=== PATIENT | female | born 1965 | race Two or more races ===

== ENCOUNTER 2018-04-16 23:07 | Emergency (ER) | payer OTHER ==
[~2018-04-16] VITALS: Ht 160 cm; Wt 131.5 kg
[2018-04-17] MEDS ORDERED: HYZAAR 100-12.1 EACH PO (00:16)
[2018-04-17] MEDS ORDERED: WELLBUTRIN SR100 MG PO (00:16)
[2018-04-17] MEDS ORDERED: FORTAMET500 MG PO (00:16)
[2018-04-17] MEDS ORDERED: CLONAZEPAM1 M1 (00:17)
[2018-04-17] MEDS ORDERED: GABAPENTIN100 MG PO (00:17)
[2018-04-17] MEDS ORDERED: ZOLOFT25 MG PO (00:17)
== END 2018-04-17 | disposition home or self-care (01) ==
LOC: ER 23:07
DX: M51.17 Intervertebral disc disorders with radiculopathy, lumbosacral region (principal)

== ENCOUNTER 2018-05-30 17:07 | Emergency (ER) | payer OTHER ==
[~2018-05-30] VITALS: Ht 157.5 cm; Wt 132.0 kg
[~2018-05-30 17:07] MED LIST: CLONAZEPAM1 M1; FORTAMET500 MG PO; GABAPENTIN100 MG PO; HYZAAR 100-12.1 EACH PO; WELLBUTRIN SR100 MG PO; ZOLOFT25 MG PO
[2018-05-30] MEDS ORDERED: ZOLOFT100 MG (17:47)
[2018-05-30] MEDS ORDERED: TRAMADOL HCL50 MG (17:48)
[2018-05-31] MEDS ORDERED: INTESTINEX680 M1 PO (08:27)
[2018-05-31] MEDS ORDERED: PHENERGAN25 MG PO (08:27)
[2018-05-31] MEDS ORDERED: TRAMADOL HCL50 MG PO (08:27)
[2018-05-31] MEDS ORDERED: PEPCID AC20 MG PO (08:27)
[2018-05-31] MEDS ORDERED: LEVSIN/SL0.125 MG PO (08:27)
[2018-05-31] MEDS ORDERED: MOXIFLOXACIN H400 MG PO (08:27)
== END 2018-05-31 08:20 | disposition home or self-care (01) ==
LOC: ER 17:07
DX: K43.9 Ventral hernia without obstruction or gangrene (principal); K56.690 Other partial intestinal obstruction; R10.31 Right lower quadrant pain; R10.32 Left lower quadrant pain

== ENCOUNTER 2018-07-21 09:49 | Inpatient (IN) | payer OTHER ==
[~2018-07-21] VITALS: Ht 160 cm; Wt 108.9 kg
[~2018-07-21 09:49] MED LIST changes: +INTESTINEX680 M1 PO; +LEVSIN/SL0.125 MG PO; +MOXIFLOXACIN H400 MG PO; +PEPCID AC20 MG PO; +PHENERGAN25 MG PO; +TRAMADOL HCL50 MG; +TRAMADOL HCL50 MG PO; +ZOLOFT100 MG
== END 2018-07-27 18:10 | disposition designated cancer center or children's hospital (05) | DRG 862 ==
LOC: SEC-K 09:49 → MEDJ 09:49
PROC: 30233N1 Transfusion of Nonautologous Red Blood Cells into Peripheral Vein, Percutaneous Approach (ICD-10-PCS; principal; 2018-07-21)
PROC: 8E0ZXY6 Isolation (ICD-10-PCS; 2018-07-21)
PROC: 05HN33Z Insertion of Infusion Device into Left Internal Jugular Vein, Percutaneous Approach (ICD-10-PCS; 2018-07-23)
DX: T81.4XXA Infection following a procedure, initial encounter (principal); A41.9 Sepsis, unspecified organism; L03.311 Cellulitis of abdominal wall; B37.49 Other urogenital candidiasis; J98.11 Atelectasis; Y83.8 Other surgical procedures as the cause of abnormal reaction of the patient, or of later complication, without mention of misadventure at the time of the procedure; Y92.098 Other place in other non-institutional residence as the place of occurrence of the external cause; E66.01 Morbid (severe) obesity due to excess calories; I10 Essential (primary) hypertension; D64.89 Other specified anemias; E11.65 Type 2 diabetes mellitus with hyperglycemia; M51.17 Intervertebral disc disorders with radiculopathy, lumbosacral region; B96.4 Proteus (mirabilis) (morganii) as the cause of diseases classified elsewhere; B95.2 Enterococcus as the cause of diseases classified elsewhere; B96.1 Klebsiella pneumoniae [K. pneumoniae] as the cause of diseases classified elsewhere; B96.5 Pseudomonas (aeruginosa) (mallei) (pseudomallei) as the cause of diseases classified elsewhere; B96.89 Other specified bacterial agents as the cause of diseases classified elsewhere

== ENCOUNTER 2020-03-31 13:36 | Emergency (ER) | payer OTHER ==
[~2020-03-31] VITALS: Ht 162.6 cm; Wt 136.1 kg
[2020-03-31] MEDS ORDERED: HYZAAR 100-251 EACH (13:56)
[2020-03-31] MEDS ORDERED: TOPROL XL50 M1 (13:57)
[2020-03-31] MEDS ORDERED: ASPIR 8181 MG (13:58)
[2020-03-31] MEDS ORDERED: SULINDAC200 MG (13:58)
[2020-03-31] MEDS ORDERED: AMBIEN10 MG (13:58)
== END 2020-03-31 16:13 | disposition home or self-care (01) ==
LOC: ER 13:36
DX: M79.651 Pain in right thigh (principal); R07.89 Other chest pain

== ENCOUNTER 2022-02-26 07:28 | Outpatient (CLI) | payer OTHER ==
[~2022-02-26 07:28] MED LIST changes: +AMBIEN10 MG; +ASPIR 8181 MG; +HYZAAR 100-251 EACH; +SULINDAC200 MG; +TOPROL XL50 M1
== END 2022-02-26 07:40 | disposition home or self-care (01) ==
LOC: TOM 07:28
PROVIDERS: ATTEND Internal Medicine Gastroenterology
DX: K63.5 Polyp of colon (principal); K57.30 Diverticulosis of large intestine without perforation or abscess without bleeding; Z80.0 Family history of malignant neoplasm of digestive organs; R19.5 Other fecal abnormalities; K62.5 Hemorrhage of anus and rectum

== ENCOUNTER 2023-08-13 10:33 | Emergency (ER) | payer OTHER ==
[~2023-08-13] VITALS: Ht 157.5 cm; Wt 136.1 kg
[2023-08-13 11:43] LABS: HEMATOCRIT 34.8 % (36.0-45.00); HEMOGLOBIN 11.8 g/dL (12.0-15.00); MEAN CORPUSCULAR HEMOGLOBIN 29.9 pg (27.00-32.0); PLATELET COUNT 243 K/uL (150-450); RED BLOOD COUNT 3.95 M/uL (4.00-6.00); RED CELL DISTRIBUTION WIDTH 13.6 % (11.5-14.5)
[2023-08-13 12:03] LABS: CALCIUM 9.9 mg/dL (8.5-10.1); CREATININE SERUM 1.28 mg/dL (0.55-1.02); GFR 42.83; POTASSIUM 3.17 mEq/L (3.5-5.1)
[2023-08-13 12:50] LABS: URINE APPEARANCE Cloudy; URINE BILIRRUBIN Negative (NEGATIVE); URINE BLOOD Small; URINE COLOR Yellow; URINE GLUCOSE Negative (NEGATIVE); URINE LEUKOCYTE Moderate; URINE NITRATE Negative; URINE PROTEIN Negative (NEGATIVE); URINE UROBILINOGEN 0.2 E.U./dl
[2023-08-13 12:52] LABS: URINE BACTERIA 6370.1 uL (0.0-1933); URINE EPITHELIAL CELLS 27.5 uL (0.0-38.8); URINE WBC 638.2 uL (0.0-23.2)
== END 2023-08-13 14:07 | disposition home or self-care (01) ==
LOC: ER
PROVIDERS: Emergency Medicine
DX: N39.0 Urinary tract infection, site not specified (principal); I10 Essential (primary) hypertension; E11.9 Type 2 diabetes mellitus without complications; Z79.84 Long term (current) use of oral hypoglycemic drugs
CPT/HCPCS: 36415; 72131; 96372; 99284; J0696; J1885

== ENCOUNTER 2023-08-20 04:38 | Emergency (ER) | payer OTHER ==
[~2023-08-20] VITALS: Ht 157.5 cm; Wt 136.1 kg
[2023-08-20 06:27] LABS: HEMATOCRIT 36.3 % (36.0-45.00); HEMOGLOBIN 12.1 g/dL (12.0-15.00); MEAN CORPUSCULAR HEMOGLOBIN 29.7 pg (27.00-32.0); MEAN CORPUSCULAR HGB CONC 33.4 g/dl (32.0-36.0); PLATELET COUNT 226 K/uL (150-450); RED BLOOD COUNT 4.08 M/uL (4.00-6.00); RED CELL DISTRIBUTION WIDTH 13.3 % (11.5-14.5)
[2023-08-20 06:59] LABS: ALBUMIN 3.4 gm/dL (3.4-5.0); BILIRUBIN TOTAL 0.31 mg/dL (0.3-1.2); CALCIUM 9.9 mg/dL (8.5-10.1); CREATININE SERUM 1.24 mg/dL (0.55-1.02); GFR 44.43; GLOBULINA 4.7 G/DL (2.4-3.5); POTASSIUM 3.9 mEq/L (3.5-5.1); TOTAL PROTEIN 8.1 gm/dL (6.4-8.2)
[2023-08-20 07:47] LABS: URINE APPEARANCE Cloudy; URINE BILIRRUBIN Negative (NEGATIVE); URINE BLOOD Small; URINE COLOR Yellow; URINE GLUCOSE Negative (NEGATIVE); URINE LEUKOCYTE Large; URINE NITRATE Negative; URINE PROTEIN Negative (NEGATIVE); URINE UROBILINOGEN 0.2 E.U./dl
[2023-08-20 07:53] LABS: URINE BACTERIA 2403.9 uL (0.0-1933); URINE EPITHELIAL CELLS 32.7 uL (0.0-38.8); URINE RBC 11.3 uL (0.0-20.8)
== END 2023-08-20 17:33 | disposition home or self-care (01) ==
LOC: ER 04:39
PROVIDERS: General Practice
DX: N39.0 Urinary tract infection, site not specified (principal); E11.9 Type 2 diabetes mellitus without complications; Z79.84 Long term (current) use of oral hypoglycemic drugs; I10 Essential (primary) hypertension
CPT/HCPCS: 36415; 96365; 96372; 99284; J2180; J2250; J3490